=== PATIENT | male | born 1990 | race African-American/Black ===

== ENCOUNTER 2019-10-24 00:18 | Emergency (ER) | payer OTHER ==
--- NOTE | 2019-10-24 00:41 | EDM.PDOC ---
ED HPI GENERAL MEDICAL PROBLEM - General Chief Complaint: Laceration Stated Complaint: right eyelid laceration Time Seen by Provider: 10/24/19 00:26 Source of Information: Reports: Patient History Limitations: Reports: No Limitations - History of Present Illness INITIAL COMMENTS - FREE TEXT/NARRATIVE: Laceration right eyelid due to getting caught on hook at work ([employer]). No o ther injuries. Says that his vision is unaffected. - Related Data Allergies Allergy/AdvReac Type Severity Reaction Status Date / Time No Known Allergies Allergy Verified 10/24/19 00:26 Home Meds: Home Meds . [No Known Home Meds] 10/24/19 [History] Past Medical History - Past Health History Medical/Surgical History: Denies Medical/Surgical History ED ROS GENERAL - Review of Systems Review Of Systems: See Below HEENT: Reports: Eye Pain (pain right eyelid). Denies: Vision Change ED EXAM, SKIN/RASH Exam: See Below General Appearance: Alert, Anxious Eye Exam: Bilateral Eye: EOMI, PERRL, Other (horizontal laceration of right eyelid around crease area, extends almost fully across the eye. Medial lid spared. ) Ears: Hearing Grossly Normal Nose: Normal Inspection Throat/Mouth: Normal Lips, Normal Voice, No Airway Compromise Neck: Supple Respiratory/Chest: No Respiratory Distress Neurological: Alert, Oriented Psychiatric: Anxious Skin: Warm, Dry Course - Vital Signs Last Recorded V/S: Last Vital Signs Temp 37.1 C 10/24/19 00:44 Pulse 65 10/24/19 00:44 Resp 18 10/24/19 00:44 BP 132/77 10/24/19 00:44 Pulse Ox 99 10/24/19 00:44 - Re-Assessments/Exams Free Text/Narrative Re-Assessment/Exam: 10/24/19 00:57 Globe appears uninjured. Laceration appears to not involve deeper structures. Given location of injury will transfer patient to [facility] for evaluation. They have surgery on staff and can better evaluate patient in regards to repair of laceration. If laceration is too complicated they will refer patient to oculoplastics per conversation with , accepting MD from ER. Departure - Departure Time of Disposition: 00:59 Disposition: DC/Tfer to Acute Hospital 02 Condition: Good Clinical Impression: Right eyelid laceration Qualifiers: Encounter type: initial encounter Qualified Code(s): S01.111A - Laceration without foreign body of right eyelid and periocular area, initial encounter - Discharge Information *PRESCRIPTION DRUG MONITORING PROGRAM REVIEWED*: Not Applicable *COPY OF PRESCRIPTION DRUG MONITORING REPORT IN PATIENT SHILA: Not Applicable Referrals: PCP,Not In Area [Primary Care Provider] - Forms: ED Department Discharge Sepsis Event Note (ED) - Focused Exam Vital Signs: Vital Signs Temp Pulse Resp BP Pulse Ox 10/24/19 00:44 37.1 C 65 18 132/77 99
[2019-10-24] MEDS ORDERED: Sodium Chloride 0.9% 10 ML Syringe FLUSH PRN (00:54)
[2019-10-24] MEDS ORDERED: Ondansetron 4 MG/2 ML SDV IVPUSH ONE (00:55)
[2019-10-24] MEDS ORDERED: Morphine 2 MG/ML SYRINGE IVPUSH ONE (00:55)
== END 2019-10-24 01:58 ==
LOC: LL.ED 00:18
DX: S01.111A Laceration without foreign body of right eyelid and periocular area, initial encounter (principal); W23.0XXA Caught, crushed, jammed, or pinched between moving objects, initial encounter; Y92.89 Other specified places as the place of occurrence of the external cause; Y99.0 Civilian activity done for income or pay
CPT/HCPCS: 96374; 96375; 99284; J2270; J2405; 99283